=== PATIENT | female | born 1970 | race Two or more races ===

== ENCOUNTER 2018-03-21 19:36 | Emergency (ER) | payer SELFPAY ==
[~2018-03-21] VITALS: Ht 162.6 cm; Wt 90.7 kg
[2018-03-21 19:48] VITALS: BP 163/72
[2018-03-21] MEDS ORDERED: LIDOCAINE WITH 8.4% SOD BICARB 3 ML DISP.SYRIN. INJ ONE (20:15)
[2018-03-21 20:24] LABS: BILIRUBIN,URINE NEGATIVE (NEG); CLARITY,URINE CLEAR; COLOR,URINE YELLOW; NITRITE,URINE NEGATIVE (NEG); PH,URINE 5.5; PROTEIN,URINE NEGATIVE (NEG-TRACE); UROBILINOGEN,URINE 0.2 mg/dL (0.2 mg/dL)
[2018-03-21] MEDS ORDERED: HYDR-971 PO (20:31)
[2018-03-21] MEDS ORDERED: SULF1TAB24 PO (20:31)
--- NOTE | 2018-03-21 20:32 | PHYS DOC ---
Past Medical History Past Medical History: Diabetes-Type I, Hypertension Additional Past Medical Histor: UTERINE CANCER Past Surgical History: Hysterectomy Alcohol Use: None Drug Use: None Adult General Chief Complaint Chief Complaint: VAGINAL PROBLEM HPI HPI Patient is a 47 year old female who presents with an abscess to the top of her inner left thigh. The patient states that it is been increasing in size over the past few days and is incredibly painful. She denies fever, nausea or vomiting. It has not drained on its own. Review of Systems Review of Systems Constitutional: Denies fever or chills [] Respiratory: Denies cough or shortness of breath [] Cardiovascular: No additional information not addressed in HPI [] GI: Denies abdominal pain, nausea, vomiting, bloody stools or diarrhea [] : Denies dysuria or hematuria [] Musculoskeletal: Denies back pain or joint pain [] Integument: See history of present illness Neurologic: Denies headache, focal weakness or sensory changes [] Endocrine: Denies polyuria or polydipsia [] All other systems were reviewed and found to be within normal limits, except as documented in this note. Current Medications Current Medications Current Medications Medications (Trade) Dose Ordered Sig/Lian Start Time Stop Time Status Last Admin Dose Admin Lidocaine/Sodium Bicarbonate (Buffered Lidocaine 1%) 3 ml 1X ONCE 03/21/18 20:15 03/21/18 20:36 DC 03/21/18 20:15 3 ML Allergies Allergies Allergies Coded Allergies Type Severity Reaction Last Updated Verified No Known Drug Allergies 03/21/18 No Physical Exam Physical Exam Constitutional: Well developed, well nourished, no acute distress, non-toxic appearance. [] HENT: Normocephalic, atraumatic, bilateral external ears normal, oropharynx moist, no oral exudates, nose normal. [] Eyes: PERRLA, EOMI, conjunctiva normal, no discharge. [] Neck: Normal range of motion, no tenderness, supple, no stridor. [] Cardiovascular:Heart rate regular rhythm, no murmur [] Lungs & Thorax: Bilateral breath sounds clear to auscultation [] Abdomen: Bowel sounds normal, soft, no tenderness, no masses, no pulsatile masses. [] Skin: There is a 2 cm abscess to the top of the patient's left inner thigh that is fluctuant Neurologic: Alert and oriented X 3, normal motor function, normal sensory function, no focal deficits noted. [] Psychologic: Affect normal, judgement normal, mood normal. [] Current Patient Data Vital Signs Vital Signs Date Time Temp Pulse Resp B/P (MAP) Pulse Ox O2 Delivery O2 Flow Rate FiO2 03/21/18 19:48 98.3 20 163/72 (102) 99 Room Air 98.3 Lab Values Laboratory Tests Test 03/21/18 19:55 Urine Collection Type Unknown Urine Color Yellow Urine Clarity Clear Urine pH 5.5 Urine Specific [place] >=1.030 Urine Protein Negative mg/dL (NEG-TRACE) Urine Glucose (UA) >=1000 mg/dL (NEG) Urine Ketones (Stick) Negative mg/dL (NEG) Urine Blood Trace (NEG) Urine Nitrite Negative (NEG) Urine Bilirubin Negative (NEG) Urine Urobilinogen Dipstick 0.2 mg/dL (0.2 mg/dL) Urine Leukocyte Esterase Negative (NEG) Urine RBC 0 /HPF (0-2) Urine WBC Tntc /HPF (0-4) Urine Squamous Epithelial Cells Few /LPF Urine Bacteria Many /HPF (0-FEW) Urine Hyaline Casts Occasional /HPF EKG EKG [] Radiology/Procedures Radiology/Procedures Abscess Incision and Drainage with irrigation by me: Location: Left upper thigh Anesthesia: Local 1% Lidocaine Technique: After local anesthetic was applied to the abscess was opened with an 11 blade with a large amount of purulent drainage expressed Packing: None Complications: Neurovascularly intact post procedure 48 hour wound check. Scar minimization instructions given. Course & Med Decision Making Course & Med Decision Making Pertinent Labs and Imaging studies reviewed. (See chart for details) [] Dragon Disclaimer Dragon Disclaimer This electronic medical record was generated, in whole or in part, using a voice recognition dictation system. Departure Departure Impression: Primary Impression: Abscess Disposition: 01 HOME, SELF-CARE Condition: STABLE Referrals: UNKNOWN PCP NAME (PCP) Patient Instructions: Abscess Additional Instructions: Take the medication as directed. Do not drive or operate heavy machinery while taking pain medication. Follow-up with your primary care provider for recheck in 3 days if not improving or return to the emergency department if worsening. Scripts Hydrocodone/Apap 5-325 (NORCO 5-325 TABLET) 1 Each Tablet 1 TAB PO PRN Q6HRS PRN for PAIN, #20 TAB 0 Refills Prov: MARITA FRANCISCO APRN 03/21/18 Sulfamethoxazole/Trimethoprim (BACTRIM DS TABLET) 1 Each Tablet 1 TAB PO BID, #20 TAB Prov: MARITA FRANCISCO APRN 03/21/18 MARITA FRANCISCO APRN Mar 21, 2018 20:32
[2018-03-21 20:37] LABS: BACTERIA,URINE MANY /HPF (0-FEW); HYALINE CASTS, URINE OCCASIONAL /HPF; RBC,URINE 0 /HPF (0-2); SQUAMOUS EPITHELIAL CELL,UR FEW /LPF; WBC,URINE TNTC /HPF (0-4)
== END 2018-03-21 20:49 | disposition home or self-care (01) ==
LOC: ER 19:36
DX: L02.416 Cutaneous abscess of left lower limb (principal); E10.9 Type 1 diabetes mellitus without complications; I10 Essential (primary) hypertension; Z90.710 Acquired absence of both cervix and uterus
CPT/HCPCS: 10060; 81001; 87086; 87186; 99284

== ENCOUNTER 2019-03-14 14:36 | Emergency (ER) | payer SELFPAY ==
[~2019-03-14] VITALS: Ht 160 cm; Wt 85.7 kg
[~2019-03-14 14:36] MED LIST: HYDR-3164 PO; SULF1TAB24 PO
--- NOTE | 2019-03-14 15:04 | PHYS DOC ---
Past Medical History Past Medical History: Diabetes-Type I, Hypertension Additional Past Medical Histor: UTERINE CANCER Past Surgical History: Hysterectomy Alcohol Use: None Drug Use: None Adult General Chief Complaint Chief Complaint: FLANK PAIN HPI HPI 48-year-old female presents to the emergency department with complaints of left low back pain 2 weeks worsening over the last day or so. She denies any fever, nausea, vomiting. She states the pain radiates down her left leg. She denies any chest pain, shortness breath, headache, visual change. Patient has underlying history of diabetes. Review of Systems Review of Systems Constitutional: Denies fever or chills [] Respiratory: Denies cough or shortness of breath [] Cardiovascular: No additional information not addressed in HPI [] GI: Denies abdominal pain, nausea, vomiting, bloody stools or diarrhea [] : Denies dysuria or hematuria [] Musculoskeletal: lower back pain on left side, radiation down left leg Integument: Denies rash or skin lesions [] Neurologic: Denies headache, focal weakness or sensory changes [] All other systems were reviewed and found to be within normal limits, except as documented in this note. Current Medications Current Medications Current Medications Medications (Trade) Dose Ordered Sig/Ilan Start Time Stop Time Status Last Admin Dose Admin Insulin Human Regular (HumuLIN R VIAL) 10 unit 1X ONCE 03/14/19 16:00 03/14/19 16:01 DC 03/14/19 16:12 10 UNIT Ketorolac Tromethamine (Toradol Im) 60 mg 1X ONCE 03/14/19 15:45 03/14/19 15:46 DC 03/14/19 16:09 60 MG Sodium Chloride 1,000 ml @ 1,000 mls/hr 1X ONCE 03/14/19 16:00 03/14/19 16:59 03/14/19 16:00 1,000 MLS/HR Allergies Allergies Allergies Coded Allergies Type Severity Reaction Last Updated Verified No Known Drug Allergies 03/21/18 No Physical Exam Physical Exam Constitutional: Well developed, well nourished, no acute distress, non-toxic appearance. [] HENT: Normocephalic, atraumatic, bilateral external ears normal, oropharynx moist, no oral exudates, nose normal. [] Eyes: PERRLA, EOMI, conjunctiva normal, no discharge. [] Neck: Normal range of motion, no tenderness, supple, no stridor. [] Cardiovascular:Heart rate regular rhythm, no murmur [] Lungs & Thorax: Bilateral breath sounds clear to auscultation [] Abdomen: Bowel sounds normal, soft, no tenderness, no masses, no pulsatile masses. [] Skin: Warm, dry, no erythema, no rash. [] Back: No tenderness, no CVA tenderness. [] Extremities: No tenderness, no cyanosis, no clubbing, ROM intact, no edema. [] Neurologic: Alert and oriented X 3, normal motor function, normal sensory function, no focal deficits noted. [] Psychologic: Affect normal, judgement normal, mood normal. [] Current Patient Data Vital Signs Vital Signs Date Time Temp Pulse Resp B/P (MAP) Pulse Ox O2 Delivery O2 Flow Rate FiO2 03/14/19 14:53 98.1 70 18 152/66 (94) 97 Room Air 98.1 Lab Values Laboratory Tests Test 03/14/19 14:50 03/14/19 15:05 03/14/19 16:50 Urine Color Yellow Urine Clarity Clear Urine pH 6.0 Urine Specific [place] >=1.030 Urine Protein Negative mg/dL (NEG-TRACE) Urine Glucose (UA) >=1000 mg/dL (NEG) Urine Ketones (Stick) Negative mg/dL (NEG) Urine Blood Small (NEG) Urine Nitrite Negative (NEG) Urine Bilirubin Negative (NEG) Urine Urobilinogen Dipstick 0.2 mg/dL (0.2 mg/dL) Urine Leukocyte Esterase Negative (NEG) Urine RBC 6-10 /HPF (0-2) Urine WBC Occ /HPF (0-4) Urine Squamous Epithelial Cells Occ /LPF Urine Bacteria 0 /HPF (0-FEW) White Blood Count 8.2 x10^3/uL (4.0-11.0) Red Blood Count 4.77 x10^6/uL (3.50-5.40) Hemoglobin 13.8 g/dL (12.0-15.5) Hematocrit 41.1 % (36.0-47.0) Mean Corpuscular Volume 86 fL (79-100) Mean Corpuscular Hemoglobin 29 pg (25-35) Mean Corpuscular Hemoglobin Concent 34 g/dL (31-37) Red Cell Distribution Width 13.0 % (11.5-14.5) Platelet Count 237 x10^3/uL (140-400) Neutrophils (%) (Auto) 63 % (31-73) Lymphocytes (%) (Auto) 26 % (24-48) Monocytes (%) (Auto) 6 % (0-9) Eosinophils (%) (Auto) 4 % (0-3) H Basophils (%) (Auto) 1 % (0-3) Neutrophils # (Auto) 5.1 x10^3/uL (1.8-7.7) Lymphocytes # (Auto) 2.1 x10^3/uL (1.0-4.8) Monocytes # (Auto) 0.5 x10^3/uL (0.0-1.1) Eosinophils # (Auto) 0.3 x10^3/uL (0.0-0.7) Basophils # (Auto) 0.1 x10^3/uL (0.0-0.2) Sodium Level 134 mmol/L (136-145) L Potassium Level 3.9 mmol/L (3.5-5.1) Chloride Level 96 mmol/L (98-107) L Carbon Dioxide Level 26 mmol/L (21-32) Anion Gap 12 (6-14) Blood Urea Nitrogen 16 mg/dL (7-20) Creatinine 1.1 mg/dL (0.6-1.0) H Estimated GFR (Cockcroft-Gault) 53.2 BUN/Creatinine Ratio 15 (6-20) Glucose Level 593 mg/dL (70-99) *H Calcium Level 9.2 mg/dL (8.5-10.1) Total Bilirubin 0.3 mg/dL (0.2-1.0) Aspartate Amino Transferase (AST) 23 U/L (15-37) Alanine Aminotransferase (ALT) 40 U/L (14-59) Alkaline Phosphatase 122 U/L (46-116) H Total Protein 7.9 g/dL (6.4-8.2) Albumin 3.6 g/dL (3.4-5.0) Albumin/Globulin Ratio 0.8 (1.0-1.7) L Glucose (Fingerstick) 341 mg/dL (70-99) H Laboratory Tests 03/14/19 15:05 Laboratory Tests 03/14/19 15:05 EKG EKG [] Radiology/Procedures Radiology/Procedures [facility] [address] [place] [address] IMAGING REPORT Signed PATIENT: VA MARTINEZ ACCOUNT: [id number] : 1970 LOCATION: ER AGE: 48 SEX: F EXAM STATUS: REG ER ORD. PHYSICIAN: CHAI RIDER MD REASON: low back pain,no injury or trauma per daughter. PROCEDURE: LUMBAR SPINE 2-3V EXAM: LUMBAR SPINE 3 VIEWS. HISTORY: Low back pain. COMPARISON: None. FINDINGS: There is a mild lumbar levocurvature. Degenerative disc disease is moderate to severe at L4-5 and mild from L1 through L4. Vertebral body heights are maintained, and no fractures are identified. 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 Surgical clips are seen in the right upper quadrant and right hemipelvis. IMPRESSION: 1. Degenerative disc disease is moderate to severe at L4-5 and mild elsewhere. Electronically signed by: Allyson Linda MD (03/14/2019 4:04 PM) [facility] DICTATED and SIGNED BY: THUAN LINDA MD DATE: 03/14/19 1604 [] Course & Med Decision Making Course & Med Decision Making Pertinent Labs and Imaging studies reviewed. (See chart for details) []48-year-old female presents to the emergency department with complaints of left low back pain 2 weeks worsening over the last day or so. She denies any fever, nausea, vomiting. She states the pain radiates down her left leg. She denies any chest pain, shortness breath, headache, visual change. Patient has underlying history of diabetes. Toradol 60mg IM Labs/Imaging reviewed BS elevated > 590 - IVF, 10 units insulin IV x 1 Follow up BS < 400 no evidence of acidosis appreciated Plan dc home and follow up with PCP Discussed with patient/family at bedside Return precautions Dragon Disclaimer Dragon Disclaimer This electronic medical record was generated, in whole or in part, using a voice recognition dictation system. Departure Departure Impression: Primary Impression: Lumbar radiculopathy Additional Impression: Uncontrolled blood glucose Referrals: UNKNOWN PCP NAME (PCP) Patient Instructions: Back Pain, Adult, [id number], Lumbosacral Radiculopathy Additional Instructions: Recommend follow up with PCP 3 - 5 days Return to the ER with worsening symptoms, intractable pain, fever, altered mental status Tylenol/Motrin as needed for pain Rx provided for flexeril and tramadol Scripts Tramadol Hcl (TRAMADOL HCL) 50 Mg Tablet 50 MG PO Q6HRS PRN for PAIN for 7 Days, #28 TAB Prov: CHAI RIDER MD 03/14/19 Cyclobenzaprine Hcl (CYCLOBENZAPRINE HCL) 10 Mg Tablet 1 TAB PO TID, #21 TAB Prov: CHAI RIDER MD 03/14/19 Problem Qualifiers CHAI RIDER MD Mar 14, 2019 15:04
[2019-03-14 15:21] LABS: BASO # 0.1 x10^3/uL (0.0-0.2); BASO % 1 % (0-3); EOS # 0.3 x10^3/uL (0.0-0.7); EOS % 4 % (0-3); HEMATOCRIT 41.1 % (36.0-47.0); HEMOGLOBIN 13.8 g/dL (12.0-15.5); LYMPH # 2.1 x10^3/uL (1.0-4.8); LYMPH % 26 % (24-48); MEAN CORPUSCULAR HEMOGLOBIN 29 pg (25-35); MEAN CORPUSCULAR HGB CONC 34 g/dL (31-37); MEAN CORPUSCULAR VOLUME 86 fL (79-100); MONO # 0.5 x10^3/uL (0.0-1.1); MONO % 6 % (0-9); NEUT # 5.1 x10^3/uL (1.8-7.7); NEUT % 63 % (31-73); PLATELET COUNT 237 x10^3/uL (140-400); RED BLOOD COUNT 4.77 x10^6/uL (3.50-5.40); WHITE BLOOD COUNT 8.2 x10^3/uL (4.0-11.0)
[2019-03-14 15:28] LABS: BILIRUBIN,URINE NEGATIVE (NEG); CLARITY,URINE CLEAR; COLOR,URINE YELLOW; NITRITE,URINE NEGATIVE (NEG); PROTEIN,URINE NEGATIVE (NEG-TRACE); UROBILINOGEN,URINE 0.2 mg/dL (0.2 mg/dL)
[2019-03-14 15:44] LABS: ALBUMIN 3.6 g/dL (3.4-5.0); ALBUMIN/GLOBULIN RATIO 0.8 (1.0-1.7); CALCIUM 9.2 mg/dL (8.5-10.1); CREATININE 1.1 mg/dL (0.6-1.0); GFR 53.2; POTASSIUM 3.9 mmol/L (3.5-5.1); TOTAL BILIRUBIN 0.3 mg/dL (0.2-1.0); TOTAL PROTEIN 7.9 g/dL (6.4-8.2)
[2019-03-14] MEDS ORDERED: KETOROLAC 60 MG/2 ML VIAL. IM ONE (15:45)
[2019-03-14 15:46] LABS: BACTERIA,URINE 0 /HPF (0-FEW); SQUAMOUS EPITHELIAL CELL,UR OCC /LPF; WBC,URINE OCC /HPF (0-4)
[2019-03-14] MEDS ORDERED: IV NORMAL SALINE 1000ML BAG 1,000 ML IV ONE (16:00)
[2019-03-14] MEDS ORDERED: INSULIN REGULAR 100 UNIT/ML 3ML VIAL. IV ONE (16:00)
--- NOTE | 2019-03-14 16:07 | RAD ---
EXAM: LUMBAR SPINE 3 VIEWS. HISTORY: Low back pain. COMPARISON: None. FINDINGS: There is a mild lumbar levocurvature. Degenerative disc disease is moderate to severe at L4-5 and mild from L1 through L4. Vertebral body heights are maintained, and no fractures are identified. 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 Surgical clips are seen in the right upper quadrant and right hemipelvis. IMPRESSION: 1. Degenerative disc disease is moderate to severe at L4-5 and mild elsewhere. Electronically signed by: Allyson Linda MD (03/14/2019 4:04 PM) [facility]
[2019-03-14 16:53] VITALS: BP 124/75
[2019-03-14] MEDS ORDERED: CYCL10TA2 PO (17:01)
[2019-03-14] MEDS ORDERED: TRAM50TA PO (17:01)
== END 2019-03-14 17:14 | disposition home or self-care (01) ==
LOC: ER 14:36
DX: M54.16 Radiculopathy, lumbar region (principal); E10.9 Type 1 diabetes mellitus without complications; I10 Essential (primary) hypertension; Z79.4 Long term (current) use of insulin; Z85.42 Personal history of malignant neoplasm of other parts of uterus; Z90.710 Acquired absence of both cervix and uterus
CPT/HCPCS: 36415; 72100; 80053; 81001; 82962; 85025; 96372; 96374; 99285; J1815; J1885; J7030